=== PATIENT | male | born 1985 | race Caucasian/White ===

== ENCOUNTER 2020-01-06 15:25 | Emergency (ER) | payer OTHER ==
[~2020-01-06] VITALS: Ht 188 cm; Wt 81.8 kg
[2020-01-06 15:59] VITALS: BP 122/85
== END 2020-01-06 16:57 ==
LOC: ER 15:25
DX: Z04.3 Encounter for examination and observation following other accident (principal); F32.9 Major depressive disorder, single episode, unspecified; Z88.0 Allergy status to penicillin; V87.7XXA Person injured in collision between other specified motor vehicles (traffic), initial encounter; Y93.89 Activity, other specified; Y92.410 Unspecified street and highway as the place of occurrence of the external cause; Y99.8 Other external cause status
CPT/HCPCS: 99283